=== PATIENT | female | born 1980 | race Caucasian/White ===

== ENCOUNTER 2020-12-14 22:54 | Emergency (ER) | payer BC ==
[2020-12-14] MEDS ORDERED: Ketorolac Tromethamine 30 MG/ML VIAL ONE (23:44)
== END 2020-12-15 | disposition home or self-care (01) ==
LOC: NAV ERS 22:54
DX: S93.401A Sprain of unspecified ligament of right ankle, initial encounter (principal); W01.0XXA Fall on same level from slipping, tripping and stumbling without subsequent striking against object, initial encounter
CPT/HCPCS: 96372; J1885